=== PATIENT | male | born 1945 | race African-American/Black ===

== ENCOUNTER 2016-10-19 14:07 | Outpatient (CLI) | payer MEDICARE ==
[2016-10-19 14:41] LABS: Hemoglobin 11.7 g/dL (14.0-18.0)
[2016-10-19 15:13] LABS: Anion Gap 16 mmol/L (10-20); BUN (Urea Nitrogen) 25 mg/dL (8.4-25.7); Calc. Creatinine Clearance 0 mL/min (70-130); Calcium 9.4 mg/dL (7.8-10.44); Carbon Dioxide 21 mmol/L (23-31); Chloride 109 mmol/L (98-107); Estimated GFR-MDRD 41; Glucose 82 mg/dL (83-110); Potassium 4.7 mmol/L (3.5-5.1); Sodium 141 mmol/L (136-145)
[2016-10-20 18:28] LABS: Iron 31 ug/dL (65-175)
== END 2016-10-19 14:08 | disposition home or self-care (01) ==
LOC: NAV LAB 14:07
PROVIDERS: ATTEND Internal Medicine Nephrology
DX: I15.0 Renovascular hypertension (principal); N18.3 Chronic kidney disease, stage 3 (moderate)
CPT/HCPCS: 80048; 82570; 83540; 83970; 84156; 85014; 85018